=== PATIENT | male | born 1945 | race Caucasian/White ===

== ENCOUNTER 2018-02-28 16:04 | Inpatient (IN) | payer OTHER, MEDICARE ==
[~2018-02-28] VITALS: Ht 157.5 cm; Wt 49.4 kg
[~2018-02-28 16:04] MED LIST: AMIO200T PO; AMLO2.5T OR; CARV6.252 PO; CITA20TA4 PO; COUM2.5T PO; FURO1TAB93 PO; HYDR-2970 PO; LISI10 PO; NITR.3 SL; POTA-267 PO; PRAV20 PO; STOO100T PO; TEMA15 PO; XANA0.5T PO
[2018-02-28 16:25] VITALS: BP 141/100; PULSE 69; RESP 18; TEMP 98.2; O2SAT 98
[2018-02-28 17:01] LABS: BILIRUBIN, URINE NEG (NEG); BLOOD, URINE NEG (NEG); GLUCOSE,URINE NEG (NEG); KETONE, URINE NEG (NEG); NITRITE,URINE NEG (NEG); PH, URINE 6.5 (5.0-8.5); URINE COLOR LIGHT-YELLOW (YELLW/STRAW); URINE LEUKOCYTE ESTERASE NEG (NEG)
[2018-02-28 17:14] LABS: AUTOMATED NEUTROPHIL # 7.5 TH/MM3 (1.8-7.7); BASOPHIL # 0.1 TH/MM3 (0-0.2); BASOPHIL % 1.1 % (0.0-2.0); EOSINOPHIL # 0.2 TH/MM3 (0-0.4); EOSINOPHIL % 1.4 % (0.0-4.0); HEMATOCRIT 33.8 % (39.0-51.0); LYMPH % 21.5 % (9.0-44.0); LYMPHOCYTE # 2.5 TH/MM3 (1.0-4.8); MEAN CELL VOLUME 82.4 FL (80.0-100.0); MEAN CORPUSCULAR HEMOGLOBIN 26.9 PG (27.0-34.0); MEAN CORPUSCULAR HGB CONC 32.6 % (32.0-36.0); MEAN PLATELET VOLUME 6.9 FL (7.0-11.0); MONO % 10.8 % (0.0-8.0); MONOCYTE # 1.2 TH/MM3 (0-0.9); NEUT % 65.2 % (16.0-70.0); PLATELET COUNT 515 TH/MM3 (150-450); RED CELL DISTRIBUTION WIDTH 16.7 % (11.6-17.2); WHITE BLOOD COUNT 11.5 TH/MM3 (4.0-11.0)
[2018-02-28 17:38] LABS: ALT (GPT) 22 U/L (12-78); AST (GOT) 15 U/L (15-37); BICARBONATE 27.1 MEQ/L (21.0-32.0); BLOOD UREA NITROGEN 13 MG/DL (7-18); CALCIUM 8.6 MG/DL (8.5-10.1); CHLORIDE 103 MEQ/L (98-107); CREATININE 1.08 MG/DL (0.60-1.30); GLOMERULAR FILTRATION RATE 67 ML/MIN (>89); GLUCOSE,RANDOM 94 MG/DL (74-106); SODIUM (NA) 136 MEQ/L (136-145)
[2018-02-28 17:40] LABS: ACETAMINOPHEN LESS THAN 2.0 MCG/ML (10.0-30.0); ALKALINE PHOSPHATASE 72 U/L (45-117); TOTAL BILIRUBIN ADULT 0.3 MG/DL (0.2-1.0)
--- NOTE | 2018-02-28 18:20 | PD ---
HPI Chief Complaint: Psychiatric Symptoms Time Seen by Provider: 17:14 Travel History International Travel<30 days: No Contact w/Intl Traveler<30days: No Traveled to known affect area: No History of Present Illness HPI 72-year-old male presents to the emergency department from [facility] because he is out of their scope of practice. According to the Haney act report the patient has history of paranoia, bizarre behavior and auditory hallucinations. He has disheveled appearance, is talking to himself, and has disorganized thought patterns. On my examination the patient says he does not even know why he is here. He is alert and oriented 4. He says "it is the only place available so he can go home." He denies suicidal or homicidal ideations. Denies auditory or visual hallucinations. Reports smoking marijuana. Reports drinking alcohol once weekly. Symptoms are moderate to severe in severity. No known aggravating or relieving factors. Onset unknown. Duration unknown. Allergies to Benadryl. Reports history of CVA and [place] and takes Coumadin. Dr. Troncoso is his primary care provider. He has no current emergent C medical complaints. Denies chest pain, shortness of breath, abdominal pain, vomiting, change in urine or stool. PFSH Past Medical History Hx Anticoagulant Therapy: Yes (Aspirin 81mg) Anxiety: Yes Depression: Yes Cardiac Catheterization: Yes (2005) High Cholesterol: Yes Chest Pain: Yes Cerebrovascular Accident: Yes (2012) Coronary Artery Disease: Yes Hypertension: Yes Respiratory: Yes (COPD, Asthma) Myocardial Infarction: Yes Past Surgical History Coronary Artery Bypass Graft: Yes Pacemaker: Yes (2006 aicd) Other Surgery: Yes (colonectomy 2008) Social History Alcohol Use: Yes Tobacco Use: Yes (11/20 jppd) Substance Use: No Allergies-Medications (Allergen,Severity, Reaction): Coded Allergies: diphenhydramine (Unverified Allergy, Severe, Hives, 07/04/17) Reported Meds & Prescriptions Reported Meds & Active Scripts Active Reported Stool Softener-Docusate (Docusate Sodium) 100 Mg Cap 100 Mg PO DIRECTED Nitrostat (Nitroglycerin) 0.3 Mg Sub 0.3 Mg SL DAILYPRN Pravachol 20 Mg Tab (Pravastatin Sodium) 20 Mg Tab 40 Mg PO DAILY Coumadin (Warfarin Sodium) 2.5 Mg Tab 2.5 Mg PO DAILY Restoril 15 Mg Cap (Temazepam) 15 Mg Cap 30 Mg PO HS Prinivil 10 Mg Tab (Lisinopril) 10 Mg Tab 10 Mg PO DAILY Klor-Con 10 (Potassium Chloride) 10 Meq Tab 10 Meq PO DAILY Lorcet 10/650 Tab (Acetaminophen/Hydrocodone) 1 Tab Tab 1 Tab PO QIDPRN Lasix (Furosemide) 40 Mg Tab 40 Mg PO DAILY Citalopram Hydrobromide 20 Mg Tab 20 Mg PO DAILY Carvedilol 6.25 Mg Tab 6.25 Mg PO DAILY Amlodipine Besylate 2.5 Mg Tab 5 Mg OR DAILY Amiodarone Hcl (Amiodarone HCl) 200 Mg Tab 200 Mg PO DAILY Xanax 0.5 Mg Tab (Alprazolam) 0.5 Mg Tab 1 Mg PO TID Review of Systems Except as stated in HPI: all other systems reviewed are Neg Physical Exam Narrative GENERAL: Well-nourished, well-developed male patient, in no acute distress SKIN: Warm and dry. HEAD: Atraumatic. Normocephalic. EYES: Pupils equal and round. ENT: Mucosa pink and moist. NECK: Supple. Trachea midline. CARDIOVASCULAR: Regular rate and rhythm. No murmur appreciated. RESPIRATORY: No accessory muscle use. Clear to auscultation. Breath sounds equal bilaterally. GASTROINTESTINAL: Abdomen soft, non-tender, nondistended. Hepatic and splenic margins not palpable. Bowel sounds are active 4 quadrants. MUSCULOSKELETAL: No obvious deformities. No clubbing. No cyanosis. No edema. NEUROLOGICAL: Awake and alert. Oriented 3. No obvious cranial nerve deficits. Motor grossly within normal limits. Normal speech. Moves all extremities. 5/5 strength to all extremities. PSYCHIATRIC: No delusional thought processes. No hallucinations. Data Data Last Documented VS Vital Signs Date Time Temp Pulse Resp B/P (MAP) Pulse Ox O2 Delivery O2 Flow Rate FiO2 02/28/18 16:25 98.2 69 18 141/100 (114) 98 Orders Orders Complete Blood Count With Diff (02/28/18 16:34) Comprehensive Metabolic Panel (02/28/18 16:34) Urinalysis - C+S If Indicated (02/28/18 16:34) Psych Screen (02/28/18 16:34) Drug Screen, Random Urine (02/28/18 16:34) Alcohol (Ethanol) (02/28/18 16:34) Salicylates (Aspirin) (02/28/18 16:34) Tylenol (Acetaminophen) (02/28/18 16:34) Prothrombin Time / Inr (Pt) (02/28/18 18:07) Ct Brain W/O Iv Contrast(Rout) (02/28/18 ) Labs Laboratory Tests Test 02/28/18 16:45 02/28/18 16:50 Urine Color LIGHT-YELLOW Urine Turbidity CLEAR Urine pH 6.5 Urine Specific [place] 1.003 Urine Protein NEG mg/dL Urine Glucose (UA) NEG mg/dL Urine Ketones NEG mg/dL Urine Occult Blood NEG Urine Nitrite NEG Urine Bilirubin NEG Urine Urobilinogen LESS THAN 2.0 MG/DL Urine Leukocyte Esterase NEG Urine WBC LESS THAN 1 /hpf Microscopic Urinalysis Comment CULT NOT INDICATED Urine Opiates Screen NEG Urine Barbiturates Screen NEG Urine Amphetamines Screen NEG Urine Benzodiazepines Screen NEG Urine Cocaine Screen NEG Urine Cannabinoids Screen POS White Blood Count 11.5 TH/MM3 Red Blood Count 4.10 MIL/MM3 Hemoglobin 11.0 GM/DL Hematocrit 33.8 % Mean Corpuscular Volume 82.4 FL Mean Corpuscular Hemoglobin 26.9 PG Mean Corpuscular Hemoglobin Concent 32.6 % Red Cell Distribution Width 16.7 % Platelet Count 515 TH/MM3 Mean Platelet Volume 6.9 FL Neutrophils (%) (Auto) 65.2 % Lymphocytes (%) (Auto) 21.5 % Monocytes (%) (Auto) 10.8 % Eosinophils (%) (Auto) 1.4 % Basophils (%) (Auto) 1.1 % Neutrophils # (Auto) 7.5 TH/MM3 Lymphocytes # (Auto) 2.5 TH/MM3 Monocytes # (Auto) 1.2 TH/MM3 Eosinophils # (Auto) 0.2 TH/MM3 Basophils # (Auto) 0.1 TH/MM3 CBC Comment DIFF FINAL Differential Comment Blood Urea Nitrogen 13 MG/DL Creatinine 1.08 MG/DL Random Glucose 94 MG/DL Total Protein 7.0 GM/DL Albumin 3.0 GM/DL Calcium Level 8.6 MG/DL Alkaline Phosphatase 72 U/L Aspartate Amino Transf (AST/SGOT) 15 U/L Alanine Aminotransferase (ALT/SGPT) 22 U/L Total Bilirubin 0.3 MG/DL Sodium Level 136 MEQ/L Potassium Level 3.6 MEQ/L Chloride Level 103 MEQ/L Carbon Dioxide Level 27.1 MEQ/L Anion Gap 6 MEQ/L Estimat Glomerular Filtration Rate 67 ML/MIN Salicylates Level 2.4 MG/DL Acetaminophen Level LESS THAN 2.0 MCG/ML Ethyl Alcohol Level LESS THAN 3 MG/DL MDM Medical Decision Making Medical Screen Exam Complete: Yes Emergency Medical Condition: Yes Medical Record Reviewed: Yes Differential Diagnosis Altered mental status, dementia, Alzheimer's, psychosis, medical clearance for psychiatric admission Narrative Course Patient presents under a Haney act. Physical examination and vital signs are essentially unremarkable. Patient has no medical complaints to report. Psych screen has been ordered. If the laboratory results are unremarkable, the patient will be medically cleared for psychiatric evaluation and disposition. Diagnosis Primary Impression: Medical clearance for psychiatric admission Condition: Stable Massiel Polanco Feb 28, 2018 18:20
[2018-02-28 18:32] VITALS: BP 153/67; PULSE 68; RESP 18; O2SAT 97
[2018-02-28 18:36] LABS: INTERNATIONAL NORMALIZED RATIO 2.8 RATIO; PROTHROMBIN TIME - PATIENT 28.2 SEC (9.8-11.6)
[2018-02-28] MEDS ORDERED: AMLO5TAB2 PO (19:06)
[2018-02-28] MEDS ORDERED: AMIO200T PO (19:06)
[2018-02-28] MEDS ORDERED: FURO40TA PO (19:06)
[2018-02-28] MEDS ORDERED: HYDR-3366 PO (19:06)
[2018-02-28] MEDS ORDERED: FLUT1INH7 INH (19:06)
[2018-02-28] MEDS ORDERED: POTA10CA PO (19:06)
[2018-02-28] MEDS ORDERED: CITA20TA4 PO (19:06)
[2018-02-28] MEDS ORDERED: LISI10TA3 PO (19:06)
[2018-02-28] MEDS ORDERED: PRAV80TA2 PO (19:06)
[2018-02-28] MEDS ORDERED: WARF-60 PO (19:06)
[2018-02-28] MEDS ORDERED: GABA600T PO (19:06)
[2018-02-28] MEDS ORDERED: AUGM875T3 PO (19:06)
[2018-02-28] MEDS ORDERED: CARV6.252 PO (19:06)
--- NOTE | 2018-02-28 19:38 | RADRPT ---
EXAM DATE/TIME: 02/28/2018 19:23 [place] COMPARISON: No previous studies available for comparison. INDICATIONS : Altered mental status. RADIATION DOSE: 56.35 CTDIvol (mGy) MEDICAL HISTORY : Cerebrovascular disease. Cardiovascular disease Hypertension. SURGICAL HISTORY : None. ENCOUNTER: Initial ACUITY: 1 day PAIN SCALE: 0/10 LOCATION: cranial TECHNIQUE: Multiple contiguous axial images were obtained of the head. Using automated exposure control and adj ustment of the mA and/or kV according to patient size, radiation dose was kept as low as reasonably a chievable to obtain optimal diagnostic quality images. DICOM format image data is available electro nically for review and comparison. FINDINGS: CEREBRUM: The ventricles are normal for age with diffuse atrophic change. Chronic small vessel ischemic changes are present. Overall No evidence of midline shift, mass lesion, hemorrhage or acute infarction. No extra-axial fluid collections are seen. POSTERIOR FOSSA: The cerebellum and brainstem are intact. The 4th ventricle is midline. The cerebellopontine angle i s unremarkable. EXTRACRANIAL: The visualized portion of the orbits is intact. SKULL: The calvaria is intact. No evidence of skull fracture. CONCLUSION: 1. Atrophy and chronic small vessel ischemic change. 2. No acute hemorrhage or mass effect. Adan Ward MD on February 28, 2018 at 19:34 Board Certified Radiologist. This report was verified electronically.
--- NOTE | 2018-02-28 19:43 | PD ---
Data Data Last Documented VS Vital Signs Date Time Temp Pulse Resp B/P (MAP) Pulse Ox O2 Delivery O2 Flow Rate FiO2 02/28/18 18:32 68 18 153/67 (95) 97 Room Air 02/28/18 16:25 98.2 Orders Orders Complete Blood Count With Diff (02/28/18 16:34) Comprehensive Metabolic Panel (02/28/18 16:34) Urinalysis - C+S If Indicated (02/28/18 16:34) Psych Screen (02/28/18 16:34) Drug Screen, Random Urine (02/28/18 16:34) Alcohol (Ethanol) (02/28/18 16:34) Salicylates (Aspirin) (02/28/18 16:34) Tylenol (Acetaminophen) (02/28/18 16:34) Prothrombin Time / Inr (Pt) (02/28/18 18:07) Ct Brain W/O Iv Contrast(Rout) (02/28/18 ) Labs Laboratory Tests Test 02/28/18 16:45 02/28/18 16:50 Urine Color LIGHT-YELLOW Urine Turbidity CLEAR Urine pH 6.5 Urine Specific [place] 1.003 Urine Protein NEG mg/dL Urine Glucose (UA) NEG mg/dL Urine Ketones NEG mg/dL Urine Occult Blood NEG Urine Nitrite NEG Urine Bilirubin NEG Urine Urobilinogen LESS THAN 2.0 MG/DL Urine Leukocyte Esterase NEG Urine WBC LESS THAN 1 /hpf Microscopic Urinalysis Comment CULT NOT INDICATED Urine Opiates Screen NEG Urine Barbiturates Screen NEG Urine Amphetamines Screen NEG Urine Benzodiazepines Screen NEG Urine Cocaine Screen NEG Urine Cannabinoids Screen POS White Blood Count 11.5 TH/MM3 Red Blood Count 4.10 MIL/MM3 Hemoglobin 11.0 GM/DL Hematocrit 33.8 % Mean Corpuscular Volume 82.4 FL Mean Corpuscular Hemoglobin 26.9 PG Mean Corpuscular Hemoglobin Concent 32.6 % Red Cell Distribution Width 16.7 % Platelet Count 515 TH/MM3 Mean Platelet Volume 6.9 FL Neutrophils (%) (Auto) 65.2 % Lymphocytes (%) (Auto) 21.5 % Monocytes (%) (Auto) 10.8 % Eosinophils (%) (Auto) 1.4 % Basophils (%) (Auto) 1.1 % Neutrophils # (Auto) 7.5 TH/MM3 Lymphocytes # (Auto) 2.5 TH/MM3 Monocytes # (Auto) 1.2 TH/MM3 Eosinophils # (Auto) 0.2 TH/MM3 Basophils # (Auto) 0.1 TH/MM3 CBC Comment DIFF FINAL Differential Comment Prothrombin Time 28.2 SEC Prothromb Time International Ratio 2.8 RATIO Blood Urea Nitrogen 13 MG/DL Creatinine 1.08 MG/DL Random Glucose 94 MG/DL Total Protein 7.0 GM/DL Albumin 3.0 GM/DL Calcium Level 8.6 MG/DL Alkaline Phosphatase 72 U/L Aspartate Amino Transf (AST/SGOT) 15 U/L Alanine Aminotransferase (ALT/SGPT) 22 U/L Total Bilirubin 0.3 MG/DL Sodium Level 136 MEQ/L Potassium Level 3.6 MEQ/L Chloride Level 103 MEQ/L Carbon Dioxide Level 27.1 MEQ/L Anion Gap 6 MEQ/L Estimat Glomerular Filtration Rate 67 ML/MIN Salicylates Level 2.4 MG/DL Acetaminophen Level LESS THAN 2.0 MCG/ML Ethyl Alcohol Level LESS THAN 3 MG/DL MDM Supervised Visit with CEZAR: Yes Narrative Course I, Dr. Florian, have reviewed the advance practice practitioner's documentation and am in agreement, met with the patient face to face, made the diagnosis, and the medical decision making was done by me. *My assessment and Findings: The patient was at [facility] under Haney act for paranoid behavior with hallucination. He was sent here for medical evaluation. Details are a bit sketchy but it seems they are uncomfortable with him over there. He denies medical complaint at this time. He is therapeutic on Coumadin at 2.8. Brain CT was done to rule out hemorrhage which it has. His lab studies are normal. Urine is clean. Minor hypertension but otherwise stable vitals. He'll be seen by psychiatry and they will provide disposition. He is is medically stable as can be made at this time. Diagnosis Primary Impression: Medical clearance for psychiatric admission Condition: Stable Howard Florian MD Feb 28, 2018 19:42
--- NOTE | 2018-02-28 19:49 | PD ---
Physical Exam Date Seen by Provider: Feb 28, 2018 Time Seen by Provider: 19:47 Narrative GENERAL: This is a well-nourished, well-developed patient, in no apparent distress. SKIN: No rashes, ecchymoses or lesions. Warm and dry. HEAD: Atraumatic. Normocephalic. EYES: PERRL, EOMI, no discharge or injection. No scleral icterus. EARS: Clear NOSE: Nasal turbinates appear normal. THROAT: Mucosa pink and moist. Airway patent. NECK: Trachea midline. supple, moves head freely. LUNGS: Clear to auscultation. CV: Regular in rhythm. ABDOMEN: Soft nontender. EXT: No clubbing cyanosis or edema. Data Data Last Documented VS Vital Signs Date Time Temp Pulse Resp B/P (MAP) Pulse Ox O2 Delivery O2 Flow Rate FiO2 02/28/18 18:32 68 18 153/67 (95) 97 Room Air 02/28/18 16:25 98.2 Orders Orders Complete Blood Count With Diff (02/28/18 16:34) Comprehensive Metabolic Panel (02/28/18 16:34) Urinalysis - C+S If Indicated (02/28/18 16:34) Psych Screen (02/28/18 16:34) Drug Screen, Random Urine (02/28/18 16:34) Alcohol (Ethanol) (02/28/18 16:34) Salicylates (Aspirin) (02/28/18 16:34) Tylenol (Acetaminophen) (02/28/18 16:34) Prothrombin Time / Inr (Pt) (02/28/18 18:07) Ct Brain W/O Iv Contrast(Rout) (02/28/18 ) Labs Laboratory Tests Test 02/28/18 16:45 02/28/18 16:50 Urine Color LIGHT-YELLOW Urine Turbidity CLEAR Urine pH 6.5 Urine Specific [place] 1.003 Urine Protein NEG mg/dL Urine Glucose (UA) NEG mg/dL Urine Ketones NEG mg/dL Urine Occult Blood NEG Urine Nitrite NEG Urine Bilirubin NEG Urine Urobilinogen LESS THAN 2.0 MG/DL Urine Leukocyte Esterase NEG Urine WBC LESS THAN 1 /hpf Microscopic Urinalysis Comment CULT NOT INDICATED Urine Opiates Screen NEG Urine Barbiturates Screen NEG Urine Amphetamines Screen NEG Urine Benzodiazepines Screen NEG Urine Cocaine Screen NEG Urine Cannabinoids Screen POS White Blood Count 11.5 TH/MM3 Red Blood Count 4.10 MIL/MM3 Hemoglobin 11.0 GM/DL Hematocrit 33.8 % Mean Corpuscular Volume 82.4 FL Mean Corpuscular Hemoglobin 26.9 PG Mean Corpuscular Hemoglobin Concent 32.6 % Red Cell Distribution Width 16.7 % Platelet Count 515 TH/MM3 Mean Platelet Volume 6.9 FL Neutrophils (%) (Auto) 65.2 % Lymphocytes (%) (Auto) 21.5 % Monocytes (%) (Auto) 10.8 % Eosinophils (%) (Auto) 1.4 % Basophils (%) (Auto) 1.1 % Neutrophils # (Auto) 7.5 TH/MM3 Lymphocytes # (Auto) 2.5 TH/MM3 Monocytes # (Auto) 1.2 TH/MM3 Eosinophils # (Auto) 0.2 TH/MM3 Basophils # (Auto) 0.1 TH/MM3 CBC Comment DIFF FINAL Differential Comment Prothrombin Time 28.2 SEC Prothromb Time International Ratio 2.8 RATIO Blood Urea Nitrogen 13 MG/DL Creatinine 1.08 MG/DL Random Glucose 94 MG/DL Total Protein 7.0 GM/DL Albumin 3.0 GM/DL Calcium Level 8.6 MG/DL Alkaline Phosphatase 72 U/L Aspartate Amino Transf (AST/SGOT) 15 U/L Alanine Aminotransferase (ALT/SGPT) 22 U/L Total Bilirubin 0.3 MG/DL Sodium Level 136 MEQ/L Potassium Level 3.6 MEQ/L Chloride Level 103 MEQ/L Carbon Dioxide Level 27.1 MEQ/L Anion Gap 6 MEQ/L Estimat Glomerular Filtration Rate 67 ML/MIN Salicylates Level 2.4 MG/DL Acetaminophen Level LESS THAN 2.0 MCG/ML Ethyl Alcohol Level LESS THAN 3 MG/DL [facility] Medical Record Reviewed: Yes Supervised Visit with CEZAR: Yes Interpretation(s) CBC & BMP Diagram 02/28/18 16:50 Total Protein 7.0, Albumin 3.0 L, Calcium Level 8.6, Alkaline Phosphatase 72, Aspartate Amino Transf (AST/SGOT) 15, Alanine Aminotransferase (ALT/SGPT) 22, Total Bilirubin 0.3 Last [address] 02/28/18 0000 Signed Impressions: Service Date/Time: February 19:23 - CONCLUSION: 1. Atrophy and chronic small vessel ischemic change. 2. No acute hemorrhage or mass effect. Adan Ward MD Differential Diagnosis MDM: High Differential diagnoses: Schizophrenia, schizoaffective disorder, bipolar, anxiety, depression, adjustment reaction, mood disorder NOS, ODD, depressive disorder NOS, dementia, dementia with agitation, psychosis NOS, substance induced mood disorder, DMDD, Asperger syndrome, infection,electrolyte abnormality, malingering. Narrative Course Mental health screening discussed with the patient. Psychiatric screen ordered. The patient laboratory tests and CAT scan have been reviewed. The patient is considered medically stable. He can be evaluated psychiatrically. This is medical clearance for psychiatric evaluation Diagnosis Primary Impression: Medical clearance for psychiatric admission Condition: Stable Aubrey Townsend Feb 28, 2018 19:49
[2018-03-01 05:58] VITALS: BP 167/79; PULSE 96; RESP 20; O2SAT 98
[2018-03-01] MEDS ORDERED: LORazepam 1 MG TAB PO PRN (08:30)
[2018-03-01] MEDS ORDERED: MAGNESIUM HYDROXIDE SUSP 30 ML CUP PO PRN (08:30)
[2018-03-01] MEDS ORDERED: ALUMINUM/MAGNESIUM/SIMETH 30 ML CUP PO PRN (08:30)
[2018-03-01] MEDS ORDERED: LORazepam 2 MG/ML VIAL IM PRN ×2 (08:30)
[2018-03-01] MEDS ORDERED: CITALOPRAM HYDROBROMIDE 20 MG TAB PO ONE (08:30)
[2018-03-01] MEDS: NICOTINE 21 MG/24 HR PATCH T-DERMAL SCH (09:00)
[2018-03-01] MEDS: QUEtiapine FUMARATE 25 MG TAB PO SCH ×2 (09:00→11:24)
[2018-03-01] MEDS: FLUTICASONE 200 MCG/VILANTEROL 25 MCG INHALER INH SCH (09:00)
[2018-03-01] MEDS: POTASSIUM CHLORIDE 10 MEQ CAP PO SCH (09:00)
[2018-03-01] MEDS ORDERED: ACETAMINOPHEN 325 MG TAB PO PRN (09:00)
--- NOTE | 2018-03-01 10:09 | HHI.HP ---
Provisional Diagnosis Admission Date Mar 01, 2018 at 08:32 [place] I. Unspecified psychosis, major neurocognitive disorder, cannabis use disorder [place] II. Deferred [place] III. Hypertension [place] IV. Conflicts with significant other, abusing cannabis, abusing sleep medication [place] V. 35 Certification of Person's Competence To Provide Express and Informed Consent I have personally examined Cordell Goldberg , a person being served at [facility] on, Mar 01, 2018 09:57. Express and informed consent means consent voluntarily given in writing, by a competent person, after sufficient explanation and disclosure of the subject matter involved to enable the person to make a knowing and willful decision without any element of force, fraud, deceit, duress, or other form of constraint or coercion. This person is 18 years of age or older, is not now known to be incompetent to consent to treatment with a guardian advocate, and does not have a health care surrogate or proxy currently making medical treatment decisions. I have found this person to be one of the following: [] Competent to provide express and informed consent, as defined above, for voluntary admission to this facility and is competent to provide express and informed consent for treatment. He/she has the consistent capacity to make well reasoned, willful, and knowing decisions concerning his or her medical or mental health treatment. The person fully and consistently understands the purpose of the admission for examination/placement and is fully capable of personally exercising all rights assured [place] Incompetent to provide express and informed consent to voluntary admission, and this is incompetent to provide express and informed consent to treatment. The person must be transferred to involuntary status and a petition for a guardian advocate filed with the Circuit Court. [x] Refusing to provide express and informed consent to voluntary admission but is competent to provide express and informed consent for treatment. The person must be discharged or transferred to involuntary status. Form shall be completed within 24 hours of a person's arrival at the receiving facility and filed in the clinical record of each person: 1. Admitted on a voluntary basis 2. Permitted to provide express and informed consent to his/her own treatment 3. Allowed to transfer from involuntary to voluntary status 4. Prior to permitting a person to consent to his or her own treatment after having been previously found incompetent to consent to treatment. History of Present Illness Capacity: Has Capacity HPI The patient is a 72-year-old man, domiciled with his in [facility], retired, without no previous psychiatric history, no previous suicide attempts, no previous psychiatric hospitalizations, he has a medical history of hypertension, who presents to the emergency department from [facility] because he is out of their scope of practice. According to the [place] act report the patient has history of paranoia, bizarre behavior and auditory hallucinations. He has disheveled appearance, is talking to himself, and has disorganized thought patterns. EMR was reviewed. On psychiatric evaluation the patient is calm, cooperative, he seems to be quite confused, he says that he feels fine, he does not even know why he is here. He says "it is the only place available so he can go home." Patient reports that the reason he was sent here "is because my has been plotting against me, she most probably has been trying to harm me for a long time now". Patient keeps asking for police telephone number "so they can arrest my for sending me here". The patient seems to be quite focused in his behavior. He says that he feels that she is a schizophrenic and demented, she has been talking to herself, planning evil things against him. He reports that he has been very depressed due to this situation with his . He says that he is anxious at home, he cannot sleep at night, he is hypervigilant afraid that she is going to kill him. The patient is fully oriented 3, logical, coherent and relevant, but seems to be internally preoccupied and paranoid. The patient also has a significant improvement in recent recall, he was able to name 3 words, but was unable to reminded 5 minutes later. However, he has good abstraction, conserved language. He denies suicidal and homicidal ideation, he denies visual and auditory hallucinations. The patient also reports that he has been having difficulty sleeping at night, and he has been taking Soma from his best friend. He also reports using marijuana every day, denies the use of other illegal drugs alcohol Review of Systems Constitutional: DENIES: Diaphoretic episodes, Fatigue, Fever, Weight gain, Weight loss, Chills, Dizziness, Change in appetite, Night Sweats Endocrine: DENIES: Heat/cold intolerance, Polydipsia, Polyuria, Polyphagia Eyes: DENIES: Blurred vision, Diplopia, Eye inflammation, Eye pain, Vision loss , Photosensitivity, Double Vision Ears, nose, mouth, throat: DENIES: Tinnitus, Hearing loss, Vertigo, Nasal discharge, Oral lesions, Throat pain, Hoarseness, Ear Pain, Running Nose, Epistaxis, Sinus Pain, Toothache, Odynophagia Respiratory: DENIES: Apneas, Cough, Snoring, Wheezing, Hemoptysis, Sputum production, Shortness of breath Cardiovascular: DENIES: Chest pain, Palpitations, Syncope, Dyspnea on Exertion , PND, Lower Extremity Edema, Orthopnea, Claudication Gastrointestinal: DENIES: Abdominal pain, Black stools, Bloody stools, Constipation, Diarrhea, Nausea, Vomiting, Difficulty Swallowing, Anorexia Genitourinary: DENIES: Sexual dysfunction, Urinary frequency, Urinary incontinence, Urgency, Hematuria, Dysuria, Nocturia, Penile Discharge, Testicular Pain, Testicular Swelling Musculoskeletal: DENIES: Joint pain, Muscle aches, Stiffness, Joint Swelling, Back pain, Neck pain Integumentary: DENIES: Abnormal pigmentation, Nail changes, Pruritus, Rash Hematologic/lymphatic: DENIES: Bruising, Lymphadenopathy Immunologic/allergic: DENIES: Eczema, Urticaria Neurologic: DENIES: Abnormal gait, Headache, Localized weakness, Paresthesias, Seizures, Speech Problems, Tremor, Poor Balance Psychiatric: COMPLAINS OF: Anxiety, Confusion, Mood changes, Depression, DENIES : Hallucinations, Agitation, Suicidal Ideation, Homicidal Ideation, Delusions Past Psych History Violence risk - others (6 mos) Increased Violence risk - self (6 mos) Increased Substance Abuse History Drugs/Alcohol past 12 months Patient reports daily use of marijuana Past Family Social History Coded Allergies: diphenhydramine (Unverified Allergy, Severe, Hives, 02/28/18) Reported Medications Hydrocodone-Acetaminophen ([place]) 10-325 Mg Tab, 1 TAB PO Q6H Y for PAIN, TAB 0 Refills 02/28/18 Amoxicillin-Clavulanate (Augmentin) 875-125 Mg Tab, 1 TAB PO BID for Infection, TAB 0 Refills 02/28/18 Warfarin (Warfarin) 6 Mg Tab, 6 MG PO DAILY for Blood Clot Prevention, #30 TAB 0 Refills 02/28/18 Carvedilol (Carvedilol) 6.25 Mg Tab, 6.25 MG PO BID, #60 TAB 0 Refills 02/28/18 Furosemide (Furosemide) 40 Mg Tab, 40 MG PO DAILY, #30 TAB 0 Refills 02/28/18 Lisinopril (Lisinopril) 10 Mg Tab, 10 MG PO DAILY, #30 TAB 0 Refills 02/28/18 Amiodarone (Amiodarone) 200 Mg Tab, 200 MG PO DAILY for Regulate Heart Beat, # 30 TAB 0 Refills 02/28/18 Gabapentin (Gabapentin) 600 Mg Tab, 600 MG PO BID, #60 TAB 0 Refills 02/28/18 Amlodipine (Amlodipine) 5 Mg Tab, 5 MG PO DAILY for Blood Pressure Management, # 30 TAB 0 Refills 02/28/18 Pravastatin (Pravastatin) 80 Mg Tab, 80 MG PO DAILY for Cholesterol Management, #30 TAB 0 Refills 02/28/18 Potassium Chloride ER (Potassium Chloride ER) 10 Meq Cap, 10 MEQ PO DAILY for Electrolyte Replacement, #30 CAP 0 Refills 02/28/18 Citalopram (Citalopram) 20 Mg Tab, 20 MG PO DAILY for Control Depression, #30 TAB 0 Refills 02/28/18 Fluticasone-Vilanterol Inh (Breo Ellipta Inh) 200-25 Mcg/Act Inh, 1 PUFF INH DAILY, #1 INHALER 0 Refills Use daily at the same time. 02/28/18 Current Medications Medications (Trade) Dose Ordered Sig/Cristina Route Start Time Stop Time Status Last Admin (Cordarone) 200 mg DAILY PO 03/01/18 09:00 (Norvasc) 5 mg DAILY PO 03/01/18 09:00 (Coreg) 6.25 mg BID PO 03/01/18 09:00 (CeleXA) 20 mg DAILY PO 03/01/18 09:00 (Breo Ellipta 200-25 Inh) 1 puff DAILY INH 03/01/18 09:00 (Lasix) 40 mg DAILY PO 03/01/18 09:00 (Neurontin) 600 mg BID PO 03/01/18 09:00 ([place]ugene 10-325 Mg) 1 tab Q6H PRN PO 03/01/18 09:00 (Prinivil) 10 mg DAILY PO 03/01/18 09:00 (KCl) 10 meq DAILY PO 03/01/18 09:00 (Pravachol) 80 mg DAILY PO 03/01/18 09:00 (Coumadin) 6 mg DAILY@1600 PO 03/01/18 16:00 Future Hold (SEROquel) 12.5 mg BID@09,12 PO 03/01/18 09:00 (SINEquan) 10 mg HS PO 03/01/18 21:00 (Ativan) 0.5 mg Q12H PRN PO 03/01/18 08:30 (Ativan Inj) 0.5 mg Q12H PRN IM 03/01/18 08:30 (Tylenol) 650 mg Q4H PRN PO 03/01/18 09:00 (Milk Of Magnesia Liq) 30 ml DAILY PRN PO 03/01/18 08:30 (Mag-Al Plus Susp Liq) 30 ml Q6H PRN PO 03/01/18 08:30 (Habitrol 21 Mg Patch.24 Hr) 1 patch DAILY T-DERMAL 03/01/18 09:00 Miscellaneous Information 1 HS T-DERMAL 03/01/18 21:00 Family Psych History No family psychiatric history Social History The patient was born and raised in [facility], he lives in [facility] with his , he has 6 kids, 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 2) Family support, no previous psychiatric Physical Exam No tremors, no EPS, no withdrawal symptoms, no psychomotor agitation or retardation Vital Signs Vital Signs Date Time Temp Pulse Resp B/P (MAP) Pulse Ox O2 Delivery O2 Flow Rate FiO2 03/01/18 05:58 96 20 167/79 (108) 98 Room Air 02/28/18 16:25 98.2 Lab Results Test 02/28/18 16:45 02/28/18 16:50 Urine Color LIGHT-YELLOW Urine Turbidity CLEAR Urine pH 6.5 Urine Specific [place] 1.003 Urine Protein NEG mg/dL Urine Glucose (UA) NEG mg/dL Urine Ketones NEG mg/dL Urine Occult Blood NEG Urine Nitrite NEG Urine Bilirubin NEG Urine Urobilinogen LESS THAN 2.0 MG/DL Urine Leukocyte Esterase NEG Urine WBC LESS THAN 1 /hpf Microscopic Urinalysis Comment CULT NOT INDICATED Urine Opiates Screen NEG Urine Barbiturates Screen NEG Urine Amphetamines Screen NEG Urine Benzodiazepines Screen NEG Urine Cocaine Screen NEG Urine Cannabinoids Screen POS White Blood Count 11.5 TH/MM3 Red Blood Count 4.10 MIL/MM3 Hemoglobin 11.0 GM/DL Hematocrit 33.8 % Mean Corpuscular Volume 82.4 FL Mean Corpuscular Hemoglobin 26.9 PG Mean Corpuscular Hemoglobin Concent 32.6 % Red Cell Distribution Width 16.7 % Platelet Count 515 TH/MM3 Mean Platelet Volume 6.9 FL Neutrophils (%) (Auto) 65.2 % Lymphocytes (%) (Auto) 21.5 % Monocytes (%) (Auto) 10.8 % Eosinophils (%) (Auto) 1.4 % Basophils (%) (Auto) 1.1 % Neutrophils # (Auto) 7.5 TH/MM3 Lymphocytes # (Auto) 2.5 TH/MM3 Monocytes # (Auto) 1.2 TH/MM3 Eosinophils # (Auto) 0.2 TH/MM3 Basophils # (Auto) 0.1 TH/MM3 CBC Comment DIFF FINAL Differential Comment Prothrombin Time 28.2 SEC Prothromb Time International Ratio 2.8 RATIO Blood Urea Nitrogen 13 MG/DL Creatinine 1.08 MG/DL Random Glucose 94 MG/DL Total Protein 7.0 GM/DL Albumin 3.0 GM/DL Calcium Level 8.6 MG/DL Alkaline Phosphatase 72 U/L Aspartate Amino Transf (AST/SGOT) 15 U/L Alanine Aminotransferase (ALT/SGPT) 22 U/L Total Bilirubin 0.3 MG/DL Sodium Level 136 MEQ/L Potassium Level 3.6 MEQ/L Chloride Level 103 MEQ/L Carbon Dioxide Level 27.1 MEQ/L Anion Gap 6 MEQ/L Estimat Glomerular Filtration Rate 67 ML/MIN Salicylates Level 2.4 MG/DL Acetaminophen Level LESS THAN 2.0 MCG/ML Ethyl Alcohol Level LESS THAN 3 MG/DL Mental Status Examination Appearance: Appropriate Consciousness: Alert Orientation: x4 Motor Activity: Normal gait Speech: Hesitant Language: Adequate Fund of Knowledge: Adequate Attention and Concentration: Adequate Memory: Impaired Mood: Sad Affect: Irritable Thought Process & Associations: Intact Thought Content: Appropriate Hallucination Type: None Delusion Type: Bizarre, Paranoid Suicidal Ideation: No Suicidal Plan: No Suicidal Intention: No Homicidal Ideation: No Homicidal Plan: No Homicidal Intention: No Insight: Poor Judgment: Poor Assessment & Plan Problem List: (1) Unspecified psychosis ICD Codes: F29 - Unspecified psychosis not due to a substance or known physiological condition Assessment & Plan: Patient was seen today for psychiatric evaluation. He presents increased paranoia toward his , self neglecting behavior, he is internally preoccupied, a little bit disorganized and with reported self talking. Patient also has marked improvement in memory, he is oriented 3, both with improving and recent recall, executive function and concentration. He also reports symptomatology of depression and anxiety in the context of being paranoid all the time against his . Patient has been engaging in poor judgment and reckless behavior such as use of medication for sleep of a friend and also smoking marijuana. Patient has an increased risk of danger to self and others due to the level of psychosis and early dementia. Patient will be admitted in psychiatry for stabilization and safety. I will start a low dose of Seroquel 12.5 mg twice daily for psychosis, Aricept 10 mg daily for dementia, citalopram 10 mg daily for depression. Also will start his medical medication for hypertension. Will consult psychiatry for second opinion, hospitalist to continue follow-up of medical conditions. Patient would be transferred to 2500 unit. Assessment & Plan Estimated LOS: Chuck Castelan MD Mar 01, 2018 10:09
[2018-03-01] MEDS: CARVEDILOL 6.25 MG TAB PO SCH ×2 (10:39→20:45)
[2018-03-01] MEDS: PRAVASTATIN SOD 80 MG TAB PO SCH (10:39)
[2018-03-01] MEDS: FUROSEMIDE 40 MG TAB PO SCH (10:40)
[2018-03-01] MEDS: CITALOPRAM HYDROBROMIDE 20 MG TAB PO SCH (10:40)
[2018-03-01] MEDS: GABAPENTIN 300 MG CAP PO SCH ×2 (10:40→20:45)
[2018-03-01] MEDS: LISINOPRIL 10 MG TAB PO SCH (10:41)
[2018-03-01] MEDS: AMIODARONE 200 MG TAB PO SCH (10:41)
[2018-03-01] MEDS: amLODIPine BESYLATE 5 MG TAB PO SCH (10:41)
[2018-03-01 11:26] VITALS: BP 155/70; PULSE 88; RESP 18; TEMP 98.5; O2SAT 100
--- NOTE | 2018-03-01 13:27 | PD.PSY.CON ---
Provisional Diagnosis Admission Date Mar 01, 2018 at 08:32 [place] I. Unspecified psychosis, major neurocognitive disorder, cannabis use disorder [place] II. Deferred [place] III. Hypertension [place] IV. Conflicts with significant other, abusing cannabis, abusing sleep medication [place] V. 35 History of Present Illness Service Psychiatry Consult Requested By Dr. Lu Reason for Consult Second opinion petition Primary Care Physician Unknown HPI The patient is a 72-year-old man, domiciled with his in [place], retired, without no previous psychiatric history, no previous suicide attempts, no previous psychiatric hospitalizations, he has a medical history of hypertension, who presents to the emergency department from [facility] because he is out of their scope of practice. According to the [place] act report the patient has history of paranoia, bizarre behavior and auditory hallucinations. He has disheveled appearance, is talking to himself, and has disorganized thought patterns. EMR was reviewed. On psychiatric evaluation the patient is calm, cooperative, he seems to be quite confused, he says that he feels fine, he does not even know why he is here. He says "it is the only place available so he can go home." Patient reports that the reason he was sent here "is because my has been plotting against me, she most probably has been trying to harm me for a long time now". Patient keeps asking for police telephone number "so they can arrest my for sending me here". The patient seems to be quite focused in his behavior. He says that he feels that she is a schizophrenic and demented, she has been talking to herself, planning evil things against him. He reports that he has been very depressed due to this situation with his . He says that he is anxious at home, he cannot sleep at night, he is hypervigilant afraid that she is going to kill him. The patient is fully oriented 3, logical, coherent and relevant, but seems to be internally preoccupied and paranoid. The patient also has a significant improvement in recent recall, he was able to name 3 words, but was unable to reminded 5 minutes later. However, he has good abstraction, conserved language. He denies suicidal and homicidal ideation, he denies visual and auditory hallucinations. The patient also reports that he has been having difficulty sleeping at night, and he has been taking Soma from his best friend. He also reports using marijuana every day, denies the use of other illegal drugs Above note dictated by Dr. Lu reviewed and agreed with. Dr. Lu has assigned first opinion petition supporting [facility].. Patient seen by me in the room is disorganized paranoid vigilant somewhat irritable with me. I agree with Dr. Lu patient does meet criteria for involuntary psychiatric hospitalization of the [place] act thus I will cosign second opinion petition supporting [facility]. Past Family Social History Coded Allergies: diphenhydramine (Unverified Allergy, Severe, Hives, 02/28/18) Reported Medications Hydrocodone-Acetaminophen ([place]) 10-325 Mg Tab, 1 TAB PO Q6H Y for PAIN, TAB 0 Refills 02/28/18 Amoxicillin-Clavulanate (Augmentin) 875-125 Mg Tab, 1 TAB PO BID for Infection, TAB 0 Refills 02/28/18 Warfarin (Warfarin) 6 Mg Tab, 6 MG PO DAILY for Blood Clot Prevention, #30 TAB 0 Refills 02/28/18 Carvedilol (Carvedilol) 6.25 Mg Tab, 6.25 MG PO BID, #60 TAB 0 Refills 02/28/18 Furosemide (Furosemide) 40 Mg Tab, 40 MG PO DAILY, #30 TAB 0 Refills 02/28/18 Lisinopril (Lisinopril) 10 Mg Tab, 10 MG PO DAILY, #30 TAB 0 Refills 02/28/18 Amiodarone (Amiodarone) 200 Mg Tab, 200 MG PO DAILY for Regulate Heart Beat, # 30 TAB 0 Refills 02/28/18 Gabapentin (Gabapentin) 600 Mg Tab, 600 MG PO BID, #60 TAB 0 Refills 02/28/18 Amlodipine (Amlodipine) 5 Mg Tab, 5 MG PO DAILY for Blood Pressure Management, # 30 TAB 0 Refills 02/28/18 Pravastatin (Pravastatin) 80 Mg Tab, 80 MG PO DAILY for Cholesterol Management, #30 TAB 0 Refills 02/28/18 Potassium Chloride ER (Potassium Chloride ER) 10 Meq Cap, 10 MEQ PO DAILY for Electrolyte Replacement, #30 CAP 0 Refills 02/28/18 Citalopram (Citalopram) 20 Mg Tab, 20 MG PO DAILY for Control Depression, #30 TAB 0 Refills 02/28/18 Fluticasone-Vilanterol Inh (Breo Ellipta Inh) 200-25 Mcg/Act Inh, 1 PUFF INH DAILY, #1 INHALER 0 Refills Use daily at the same time. 02/28/18 Current Medications Medications (Trade) Dose Ordered Sig/Cristina Route Start Time Stop Time Status Last Admin (Cordarone) 200 mg DAILY PO 03/01/18 09:00 03/01/18 10:41 (Norvasc) 5 mg DAILY PO 03/01/18 09:00 03/01/18 10:41 (Coreg) 6.25 mg BID PO 03/01/18 09:00 03/01/18 10:39 (CeleXA) 20 mg DAILY PO 03/01/18 09:00 03/01/18 10:40 (Breo Ellipta 200-25 Inh) 1 puff DAILY INH 03/01/18 09:00 03/01/18 09:00 (Lasix) 40 mg DAILY PO 03/01/18 09:00 03/01/18 10:40 (Neurontin) 600 mg BID PO 03/01/18 09:00 03/01/18 10:40 ([place] 10-325 Mg) 1 tab Q6H PRN PO 03/01/18 09:00 (Prinivil) 10 mg DAILY PO 03/01/18 09:00 03/01/18 10:41 (KCl) 10 meq DAILY PO 03/01/18 09:00 03/01/18 09:00 (Pravachol) 80 mg DAILY PO 03/01/18 09:00 03/01/18 10:39 (Coumadin) 6 mg DAILY@1600 PO 03/01/18 16:00 Future Hold (SEROquel) 12.5 mg BID@09,12 PO 03/01/18 09:00 03/01/18 11:24 (Ativan) 0.5 mg Q12H PRN PO 03/01/18 08:30 (Ativan Inj) 0.5 mg Q12H PRN IM 03/01/18 08:30 (Tylenol) 650 mg Q4H PRN PO 03/01/18 09:00 (Milk Of Magnesia Liq) 30 ml DAILY PRN PO 03/01/18 08:30 (Mag-Al Plus Susp Liq) 30 ml Q6H PRN PO 03/01/18 08:30 (Habitrol 21 Mg Patch.24 Hr) 1 patch DAILY T-DERMAL 03/01/18 09:00 Miscellaneous Information 1 HS T-DERMAL 03/01/18 21:00 (Aricept) 10 mg HS PO 03/01/18 21:00 (Pneumovax-23 Inj) 25 mcg ONCE ONCE IM 03/02/18 10:00 03/02/18 10:01 Patient's Strengths (min. 2) Family support, no previous psychiatric Physical Exam Vital Signs Vital Signs Date Time Temp Pulse Resp B/P (MAP) Pulse Ox O2 Delivery O2 Flow Rate FiO2 03/01/18 11:26 98.5 88 18 155/70 (98) 100 03/01/18 05:58 Room Air I/O 03/01/18 03/01/18 03/02/18 08:00 16:00 00:00 Intake Total 240 ml Balance 240 ml Lab Results Test 02/28/18 16:45 02/28/18 16:50 Urine Color LIGHT-YELLOW Urine Turbidity CLEAR Urine pH 6.5 Urine Specific [place] 1.003 Urine Protein NEG mg/dL Urine Glucose (UA) NEG mg/dL Urine Ketones NEG mg/dL Urine Occult Blood NEG Urine Nitrite NEG Urine Bilirubin NEG Urine Urobilinogen LESS THAN 2.0 MG/DL Urine Leukocyte Esterase NEG Urine WBC LESS THAN 1 /hpf Microscopic Urinalysis Comment CULT NOT INDICATED Urine Opiates Screen NEG Urine Barbiturates Screen NEG Urine Amphetamines Screen NEG Urine Benzodiazepines Screen NEG Urine Cocaine Screen NEG Urine Cannabinoids Screen POS White Blood Count 11.5 TH/MM3 Red Blood Count 4.10 MIL/MM3 Hemoglobin 11.0 GM/DL Hematocrit 33.8 % Mean Corpuscular Volume 82.4 FL Mean Corpuscular Hemoglobin 26.9 PG Mean Corpuscular Hemoglobin Concent 32.6 % Red Cell Distribution Width 16.7 % Platelet Count 515 TH/MM3 Mean Platelet Volume 6.9 FL Neutrophils (%) (Auto) 65.2 % Lymphocytes (%) (Auto) 21.5 % Monocytes (%) (Auto) 10.8 % Eosinophils (%) (Auto) 1.4 % Basophils (%) (Auto) 1.1 % Neutrophils # (Auto) 7.5 TH/MM3 Lymphocytes # (Auto) 2.5 TH/MM3 Monocytes # (Auto) 1.2 TH/MM3 Eosinophils # (Auto) 0.2 TH/MM3 Basophils # (Auto) 0.1 TH/MM3 CBC Comment DIFF FINAL Differential Comment Prothrombin Time 28.2 SEC Prothromb Time International Ratio 2.8 RATIO Blood Urea Nitrogen 13 MG/DL Creatinine 1.08 MG/DL Random Glucose 94 MG/DL Total Protein 7.0 GM/DL Albumin 3.0 GM/DL Calcium Level 8.6 MG/DL Alkaline Phosphatase 72 U/L Aspartate Amino Transf (AST/SGOT) 15 U/L Alanine Aminotransferase (ALT/SGPT) 22 U/L Total Bilirubin 0.3 MG/DL Sodium Level 136 MEQ/L Potassium Level 3.6 MEQ/L Chloride Level 103 MEQ/L Carbon Dioxide Level 27.1 MEQ/L Anion Gap 6 MEQ/L Estimat Glomerular Filtration Rate 67 ML/MIN Salicylates Level 2.4 MG/DL Acetaminophen Level LESS THAN 2.0 MCG/ML Ethyl Alcohol Level LESS THAN 3 MG/DL Mental Status Examination Appearance: Appropriate Consciousness: Alert Orientation: x4 Motor Activity: Normal gait Speech: Hesitant Language: Adequate Fund of Knowledge: Adequate Attention and Concentration: Adequate Memory: Impaired Mood: Sad Affect: Irritable Thought Process & Associations: Intact Thought Content: Appropriate Hallucination Type: None Delusion Type: Bizarre, Paranoid Suicidal Ideation: No Suicidal Plan: No Suicidal Intention: No Homicidal Ideation: No Homicidal Plan: No Homicidal Intention: No Insight: Poor Judgment: Poor Assessment & Plan Problem List: (1) Unspecified psychosis ICD Codes: F29 - Unspecified psychosis not due to a substance or known physiological condition Assessment & Plan Estimated LOS: Anthony Kwon MD Mar 01, 2018 13:27
[2018-03-01] MEDS ORDERED: WARFARIN SOD 6 MG TAB PO SCH (16:00)
[2018-03-01 20:00] VITALS: BP 158/72; PULSE 78
[2018-03-01] MEDS: DONEPEZIL HCL 5 MG TAB PO SCH (20:45)
[2018-03-01] MEDS: REMOVE OLD NICODERM (NICOTINE) PATCH T-DERMAL SCH (20:45)
[2018-03-01] MEDS ORDERED: DOXEPIN HCL 10 MG CAP PO SCH (21:00)
[2018-03-02 05:44] VITALS: BP 144/75; PULSE 73; RESP 16; TEMP 97.9; O2SAT 96
[2018-03-02 07:24] LABS: BLOOD UREA NITROGEN 12 MG/DL (7-18); CALCIUM 8.9 MG/DL (8.5-10.1); CHLORIDE 110 MEQ/L (98-107); CREATININE 1.02 MG/DL (0.60-1.30); GLOMERULAR FILTRATION RATE 72 ML/MIN (>89); GLUCOSE,RANDOM 100 MG/DL (74-106); SODIUM (NA) 142 MEQ/L (136-145)
[2018-03-02 07:25] LABS: CHOLESTEROL 157 MG/DL (120-200); TRIGLYCERIDES 131 MG/DL (42-150)
[2018-03-02 07:27] LABS: CHOLESTEROL/ HDL RATIO 3.32 RATIO; HDL CHOLESTEROL 47.2 MG/DL (40.0-60.0); LDL CHOLESTEROL 84 MG/DL (0-99)
[2018-03-02] MEDS: FLUTICASONE 200 MCG/VILANTEROL 25 MCG INHALER INH SCH (09:00)
[2018-03-02] MEDS: NICOTINE 21 MG/24 HR PATCH T-DERMAL SCH (09:00)
[2018-03-02] MEDS: CITALOPRAM HYDROBROMIDE 20 MG TAB PO SCH (09:00)
[2018-03-02] MEDS: LISINOPRIL 10 MG TAB PO SCH (09:35)
[2018-03-02] MEDS: POTASSIUM CHLORIDE 10 MEQ CAP PO SCH (09:35)
[2018-03-02] MEDS: FUROSEMIDE 40 MG TAB PO SCH (09:35)
[2018-03-02] MEDS: PRAVASTATIN SOD 80 MG TAB PO SCH (09:35)
[2018-03-02] MEDS: CARVEDILOL 6.25 MG TAB PO SCH ×2 (09:36→20:41)
[2018-03-02] MEDS: amLODIPine BESYLATE 5 MG TAB PO SCH (09:36)
[2018-03-02] MEDS: QUEtiapine FUMARATE 25 MG TAB PO SCH ×2 (09:36→11:50)
[2018-03-02] MEDS: AMIODARONE 200 MG TAB PO SCH (09:36)
[2018-03-02] MEDS: ACETAMINOPHEN/HYDROcodone 325 MG/10 MG TAB PO PRN (09:44)
[2018-03-02] MEDS: GABAPENTIN 300 MG CAP PO SCH ×2 (09:44→20:41)
[2018-03-02] MEDS ORDERED: PNEUMOCOCCAL POLYVALENT INJ 25 MCG/0.5 ML SYR IM ONE (10:00)
[2018-03-02] MEDS: LORazepam 0.5 MG TAB PO PRN (15:32)
--- NOTE | 2018-03-02 15:34 | HHI.PYPN ---
Subjective Remarks Patient was seen and case discussed with nursing. Patient says he is been anxious throughout the day. Continues to have bizarre behavior. During the interview he invades my personal space and starts whispering to me about another patient saying that he needs to apply for his benefit so he can get more money. Her processes disorganized and tangential. Denies auditory or visual hallucinations. No outbursts Mental Status Examination Appearance: Appropriate Consciousness: Alert Orientation: x4 Motor Activity: Normal gait Speech: Hesitant Language: Adequate Fund of Knowledge: Adequate Attention and Concentration: Adequate Memory: Impaired Mood: Sad Affect: Irritable Thought Process & Associations: Circumstantial, Disorganized Thought Content: Appropriate Hallucination Type: None Delusion Type: Bizarre, Paranoid Suicidal Ideation: No Suicidal Plan: No Suicidal Intention: No Homicidal Ideation: No Homicidal Plan: No Homicidal Intention: No Insight: Poor Judgment: Poor Results Labs Test 03/02/18 06:33 Blood Urea Nitrogen 12 MG/DL Creatinine 1.02 MG/DL Random Glucose 100 MG/DL Calcium Level 8.9 MG/DL Sodium Level 142 MEQ/L Potassium Level 4.0 MEQ/L Chloride Level 110 MEQ/L Carbon Dioxide Level 24.0 MEQ/L Anion Gap 8 MEQ/L Estimat Glomerular Filtration Rate 72 ML/MIN Triglycerides Level 131 MG/DL Cholesterol Level 157 MG/DL LDL Cholesterol 84 MG/DL HDL Cholesterol 47.2 MG/DL Cholesterol/HDL Ratio 3.32 RATIO Vitals/IOs Vital Signs Date Time Temp Pulse Resp B/P (MAP) Pulse Ox O2 Delivery O2 Flow Rate FiO2 03/02/18 05:44 97.9 73 16 144/75 (98) 96 03/01/18 05:58 Room Air Intake and Output 03/02/18 03/02/18 03/03/18 08:00 16:00 00:00 Intake Total 240 ml 360 ml Balance 240 ml 360 ml Assessment & Plan Problem List: (1) Unspecified psychosis ICD Codes: F29 - Unspecified psychosis not due to a substance or known physiological condition Assessment & Plan Estimated LOS: days Continue current treatment plan Justification for Cont. Inpt. Patient would decompensate in a less restrictive setting Derrick Javier DO Mar 02, 2018 15:34
[2018-03-02 17:33] VITALS: BP 133/62; PULSE 70; RESP 17; TEMP 97.9; O2SAT 99
[2018-03-02] MEDS: DONEPEZIL HCL 5 MG TAB PO SCH (20:41)
[2018-03-02] MEDS: REMOVE OLD NICODERM (NICOTINE) PATCH T-DERMAL SCH (20:41)
[2018-03-03 05:46] VITALS: BP 142/65; PULSE 64; RESP 18; TEMP 98.5; O2SAT 98
[2018-03-03] MEDS: FLUTICASONE 200 MCG/VILANTEROL 25 MCG INHALER INH SCH (08:46)
[2018-03-03] MEDS: GABAPENTIN 300 MG CAP PO SCH ×2 (08:47→20:37)
[2018-03-03] MEDS: LISINOPRIL 10 MG TAB PO SCH (08:47)
[2018-03-03] MEDS: FUROSEMIDE 40 MG TAB PO SCH (08:48)
[2018-03-03] MEDS: PRAVASTATIN SOD 80 MG TAB PO SCH (08:48)
[2018-03-03] MEDS: POTASSIUM CHLORIDE 10 MEQ CAP PO SCH (08:48)
[2018-03-03] MEDS: ACETAMINOPHEN/HYDROcodone 325 MG/10 MG TAB PO PRN ×2 (08:48→21:29)
[2018-03-03] MEDS: AMIODARONE 200 MG TAB PO SCH (08:48)
[2018-03-03] MEDS: CITALOPRAM HYDROBROMIDE 20 MG TAB PO SCH (08:48)
[2018-03-03] MEDS: amLODIPine BESYLATE 5 MG TAB PO SCH (08:49)
[2018-03-03] MEDS: QUEtiapine FUMARATE 25 MG TAB PO SCH ×2 (08:49→11:57)
[2018-03-03] MEDS: CARVEDILOL 6.25 MG TAB PO SCH ×2 (08:49→20:37)
[2018-03-03] MEDS: NICOTINE 21 MG/24 HR PATCH T-DERMAL SCH (08:50)
[2018-03-03 13:45] LABS: HEMOGLOBIN A1C 5.8 % (4.3-6.0)
--- NOTE | 2018-03-03 14:44 | HHI.PYPN ---
Subjective Remarks Patient was seen and case discussed with nursing. Patient is less disorganized today. No bizarre behavior noted as yesterday by myself or nursing. Insight remains poor concerning his admission and his behavior. He is compliant with his medications and behaving well on the unit Mental Status Examination Appearance: Appropriate Consciousness: Alert Orientation: x4 Motor Activity: Normal gait Speech: Hesitant Language: Adequate Fund of Knowledge: Adequate Attention and Concentration: Adequate Memory: Impaired Mood: Sad Affect: Irritable Thought Process & Associations: Circumstantial, Disorganized Thought Content: Appropriate Hallucination Type: None Delusion Type: Bizarre, Paranoid Suicidal Ideation: No Suicidal Plan: No Suicidal Intention: No Homicidal Ideation: No Homicidal Plan: No Homicidal Intention: No Insight: Poor Judgment: Poor Results Vitals/IOs Vital Signs Date Time Temp Pulse Resp B/P (MAP) Pulse Ox O2 Delivery O2 Flow Rate FiO2 03/03/18 05:46 98.5 64 18 142/65 (90) 98 03/01/18 05:58 Room Air Intake and Output 03/03/18 03/03/18 03/04/18 08:00 16:00 00:00 Intake Total 0 ml 360 ml Balance 0 ml 360 ml Assessment & Plan Problem List: (1) Unspecified psychosis ICD Codes: F29 - Unspecified psychosis not due to a substance or known physiological condition Assessment & Plan Continue current treatment plan Justification for Cont. Inpt. Patient would decompensate in a less restrictive setting Derrick Javier DO Mar 03, 2018 14:44
[2018-03-03 17:20] VITALS: BP 148/65; PULSE 61; RESP 16; TEMP 97.8; O2SAT 100
[2018-03-03] MEDS: DONEPEZIL HCL 5 MG TAB PO SCH (20:37)
[2018-03-03] MEDS: REMOVE OLD NICODERM (NICOTINE) PATCH T-DERMAL SCH (20:37)
[2018-03-03 23:30] VITALS: BP 131/59; PULSE 60; RESP 18; TEMP 97.6; O2SAT 96
[2018-03-03] MEDS: LORazepam 0.5 MG TAB PO PRN (23:38)
[2018-03-04 06:16] VITALS: BP 142/67; PULSE 65; RESP 18; TEMP 96.7; O2SAT 96
[2018-03-04] MEDS: QUEtiapine FUMARATE 25 MG TAB PO SCH ×2 (08:54→11:29)
[2018-03-04] MEDS: POTASSIUM CHLORIDE 10 MEQ CAP PO SCH (08:54)
[2018-03-04] MEDS: LISINOPRIL 10 MG TAB PO SCH (08:54)
[2018-03-04] MEDS: CITALOPRAM HYDROBROMIDE 20 MG TAB PO SCH (08:54)
[2018-03-04] MEDS: amLODIPine BESYLATE 5 MG TAB PO SCH (08:54)
[2018-03-04] MEDS: CARVEDILOL 6.25 MG TAB PO SCH (08:54)
[2018-03-04] MEDS: PRAVASTATIN SOD 80 MG TAB PO SCH (08:54)
[2018-03-04] MEDS: AMIODARONE 200 MG TAB PO SCH (08:55)
[2018-03-04] MEDS: GABAPENTIN 300 MG CAP PO SCH (08:55)
[2018-03-04] MEDS: FLUTICASONE 200 MCG/VILANTEROL 25 MCG INHALER INH SCH (08:55)
[2018-03-04] MEDS: ACETAMINOPHEN/HYDROcodone 325 MG/10 MG TAB PO PRN (08:55)
[2018-03-04] MEDS: FUROSEMIDE 40 MG TAB PO SCH (08:59)
[2018-03-04] MEDS: NICOTINE 21 MG/24 HR PATCH T-DERMAL SCH (08:59)
--- NOTE | 2018-03-04 10:51 | PD.CONS ---
[facility] Request[facility] By Psychiatry service Reason for Consult Management patient on Coumadin therapy Primary Care Physician PCP-arrange CT "Dr. Troncoso" Diagnoses: History of Present Illness Patient is a 72-year-old male who is admitted under psychiatry services for unspecified psychosis. Patient on exam is very cooperative and pleasant when asked why he is here patient states "I have no idea". Patient insinuated that it is his who insisted on him to be here. Patient currently denies any fever chest pain or shortness of breath patient is up ambulating around denies any nausea vomiting. Cooperative with history taking. The patient apparently has history of CAD status post UT 3 in the past had a CABG done in 2006. He came in here a few days ago for chest pain. Ruled out for troponin negative. Had a stress test done which shows no ischemia. Ejection fraction of 28%. Clinically though patient states active denies any orthopnea denies any leg swelling. He has history of likely ischemic cardiomyopathy and status post AICD placement in January 2017. Patient states he follows up with a primary care physician named Dr. Troncoso and grievance and appeals specialist name he does not recall. He denies hearing any voices right now. Patient on record is Haney acted. Denies any suicidal ideations. Denies any suicidal ideations or any aggressive behavior. Pleasant and cooperative on exam. [facility]. He states compliance with medications and is on Coumadin 2.5 mg daily. INR was subtherapeutic on admission Review of Systems Constitutional: DENIES: Fever, Weight loss, Chills, Change in appetite Eyes: DENIES: Blurred vision, Double Vision Ears, nose, mouth, throat: DENIES: Tinnitus, Ear Pain, Epistaxis, Odynophagia Respiratory: DENIES: Cough, Hemoptysis, Sputum production, Shortness of breath Cardiovascular: DENIES: Chest pain, Palpitations, Dyspnea on Exertion, Lower Extremity Edema, Orthopnea Gastrointestinal: DENIES: Black stools, Bloody stools, Difficulty Swallowing, Anorexia Genitourinary: DENIES: Urgency, Hematuria, Penile Discharge Musculoskeletal: DENIES: Joint pain, Stiffness Integumentary: DENIES: Pruritus Hematologic/lymphatic: DENIES: Bruising Immunologic/allergic: DENIES: Urticaria Neurologic: DENIES: Headache, Speech Problems, Tremor Psychiatric: DENIES: Suicidal Ideation, Homicidal Ideation Past Family Social History Allergies: Coded Allergies: diphenhydramine (Unverified Allergy, Severe, Hives, 02/28/18) Past Medical History Hyperlipidemia, 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 fib on review of records Past Surgical History Status post CABG 2017 Right foot neuroma surgery Right total knee replacement Reported Medications See EMR Active Ordered Medications See EMR Family History Noncontributory Social History Smokes 1 pack every 2 days Denies alcohol use denies IV drug use admits to occasional marijuana use Physical Exam Vital Signs Vital Signs Date Time Temp Pulse Resp B/P (MAP) Pulse Ox O2 Delivery O2 Flow Rate FiO2 03/04/18 06:16 96.7 65 18 142/67 (92) 96 03/03/18 23:30 97.6 60 18 131/59 (83) 96 03/03/18 17:20 97.8 61 16 148/65 (92) 100 Physical Exam GENERAL: This is a well-nourished, well-developed patient, in no apparent distress. Cooperative and pleasant on exam SKIN: No rashes, ecchymoses or lesions. Cool and dry. HEAD: Atraumatic. Normocephalic. No temporal or scalp tenderness. EYES: Pupils equal round and reactive. Extraocular motions intact. No scleral icterus. No injection or drainage. ENT: Nose without bleeding, purulent drainage or septal hematoma. Throat without erythema, tonsillar hypertrophy or exudate. Uvula midline. Airway patent. NECK: Trachea midline. No JVD or lymphadenopathy. Supple, nontender, no meningeal signs. CARDIOVASCULAR: Regular rate and rhythm without murmurs, distant heart sounds, RESPIRATORY: Clear to auscultation. Breath sounds equal bilaterally. No wheezes , rales, or rhonchi. GASTROINTESTINAL: Abdomen soft, non-tender, nondistended. No hepato-splenomegaly , or palpable masses. No guarding. No scrotal swelling MUSCULOSKELETAL: Extremities without clubbing, cyanosis, or edema. No joint tenderness, effusion, or edema noted. No calf tenderness. Negative Homans sign bilaterally. NEUROLOGICAL: Awake and alert. Cranial nerves II through XII intact. Motor and sensory grossly within normal limits. Five out of 5 muscle strength in all muscle groups. Normal speech. Result Diagram: 02/28/18 1650 03/02/18 0633 Imaging Last Impressions Head CT 02/28/18 0000 Signed Impressions: Service Date/Time: February 19:23 - CONCLUSION: 1. Atrophy and chronic small vessel ischemic change. 2. No acute hemorrhage or mass effect. Adan Ward MD Assessment and Plan Assessment and Plan 72-year-old male Psychosis- managment per psychiatry History of ischemic cardiomyopathy with known ejection fraction of 28% status post AICD. Patient clinically looks good no signs of failure History of hypertension, history of paroxysmal A. fib paced rhythm On Coumadin therapy for above-with subtherapeutic INR Continue on Coreg beta-michelle,OLIVE, CCB, statins Continue coumadin INR drawn today still pending. We will dose for Coumadin and adjust Smoker patient counseled extensively. Patient states it is not likely going to happen.that he can stop Admits to marijuana use patient counseled Patient up and ambulating. medically stable - If discharge follow-up with primary care physician in [facility] and grievance and appeals specialist in [place]. Thank you for this consult will follow patient in-house with you Gabe Flores MD Mar 04, 2018 10:51
[2018-03-04] MEDS ORDERED: WARFARIN SOD 6 MG TAB PO SCH (16:00)
[2018-03-04] MEDS ORDERED: CITA20TA4 PO (16:17)
[2018-03-04] MEDS ORDERED: SERO25TA PO (16:17)
--- NOTE | 2018-03-04 16:23 | HHI.DS ---
Psychiatry Discharge Summary Inpatient Psychiatric care?: Yes Advance Directive: No Mental Health AdvanceDirective: No Health Care Proxy: No Admission Admission Date Mar 01, 2018 at 08:32 Admission Diagnosis: (1) Unspecified psychosis ICD Code: F29 - Unspecified psychosis not due to a substance or known physiological condition Brief History The patient is a 72-year-old man, domiciled with his in [place], retired, without no previous psychiatric history, no previous suicide attempts, no previous psychiatric hospitalizations, he has a medical history of hypertension, who presents to the emergency department from [facility] because he is out of their scope of practice. According to the Haney act report the patient has history of paranoia, bizarre behavior and auditory hallucinations. He has disheveled appearance, is talking to himself, and has disorganized thought patterns. EMR was reviewed. On psychiatric evaluation the patient is calm, cooperative, he seems to be quite confused, he says that he feels fine, he does not even know why he is here. He says "it is the only place available so he can go home." Patient reports that the reason he was sent here "is because my has been plotting against me, she most probably has been trying to harm me for a long time now". Patient keeps asking for police telephone number "so they can arrest my for sending me here". The patient seems to be quite focused in his behavior. He says that he feels that she is a schizophrenic and demented, she has been talking to herself, planning evil things against him. He reports that he has been very depressed due to this situation with his . He says that he is anxious at home, he cannot sleep at night, he is hypervigilant afraid that she is going to kill him. The patient is fully oriented 3, logical, coherent and relevant, but seems to be internally preoccupied and paranoid. The patient also has a significant improvement in recent recall, he was able to name 3 words, but was unable to reminded 5 minutes later. However, he has good abstraction, conserved language. He denies suicidal and homicidal ideation, he denies visual and auditory hallucinations. The patient also reports that he has been having difficulty sleeping at night, and he has been taking Soma from his best friend. He also reports using marijuana every day, denies the use of other illegal drugs alcohol //18 Above note dictated by Dr. Lu reviewed and agreed with. Dr. Lu has assigned first opinion petition supporting Haney act. Patient seen by me in the room is disorganized paranoid vigilant somewhat irritable with me. I agree with Dr. Lu patient does meet criteria for involuntary psychiatric hospitalization of the Haney act thus I will cosign second opinion petition supporting Haney act Tobacco Use In Past 30 Days: 4 or Less Cigarettes/Day Alcohol Use: 2-3 Times Per Week Hospital Course Patient's hospital course was uneventful, he showed compliance with medication from day 1. His is visited today she states that this time she feels quite safe with him coming home she acknowledges the perceptual issues with him that may be more of a dementing process than an actual psychosis. Patient is calm at this time he denies suicidality and homicidality voices or visions. He is mildly diffusely confused but he knows his is waiting from the parking lot that he wishes to go home he knows she is in [facility] that the president is strong. At this time I feel patient is recent maximum benefit of this hospitalization. He has a safe discharge. His wishes him home we have advised her of the need to show good judgment with him and to make use of support groups if necessary. If the driving issue comes up she may need to also call the police to do a wellness check otherwise follow-up with her PCP she was given Rx for psychotropic medicine for 1 month that included Seroquel and citalopram just continued his other scheduled medical medications Results Blood Pressure 142 / 67 Vital Signs Date Time Temp Pulse Resp B/P (MAP) Pulse Ox O2 Delivery O2 Flow Rate FiO2 03/04/18 06:16 96.7 65 18 142/67 (92) 96 03/01/18 05:58 Room Air Laboratory Tests Test 03/02/18 06:33 03/04/18 10:45 Chloride Level 110 MEQ/L (98-107) Estimat Glomerular Filtration Rate 72 ML/MIN (>89) Laboratory Results Test 03/02/18 06:33 Cholesterol Level 157 MG/DL (120-200) HDL Cholesterol 47.2 MG/DL (40.0-60.0) Hemoglobin A1c 5.8 % (4.3-6.0) LDL Cholesterol 84 MG/DL (0-99) Triglycerides Level 131 MG/DL (42-150) Summary of Procedures None done Imaging Last Impressions Head CT 02/28/18 0000 Signed Impressions: Service Date/Time: February 19:23 - CONCLUSION: 1. Atrophy and chronic small vessel ischemic change. 2. No acute hemorrhage or mass effect. Adan Ward MD Pending results at discharge: No Medications # of Antipsychotic meds at D/C: 1 Approp Antipsych med options 1 - Minimum of three failed multiple trials of monotherapy. 2 - Documented plan to taper to monotherapy due to previous use of multiple meds OR cross-taper in progress at D/C. 3 - Documentation of augmentation of Clozapine. 4 - Justification other than those listed in allowable values 1-3, document here : Discharge Discharge Date: Mar 04, 2018 Discharge Diagnosis: (1) BRIEF PSYCHOTIC DISORDER Diagnosis: Principal ICD Code: F23 - BRIEF PSYCHOTIC DISORDER Pt Condition on Discharge: Stable Discharge Disposition: Discharge Home Discharge Instructions Diet Instructions: As Tolerated, No Restrictions Activities you can perform: Regular-No Restrictions Scheduled Appointment: [facility] Appointment Date: Mar 07, 2018 Appointment Time: 9:30am Discharge Time > 30 minutes Mental Status Examination Appearance: Appropriate Consciousness: Alert Orientation: x4 Motor Activity: Normal gait Speech: Hesitant Language: Adequate Fund of Knowledge: Adequate Attention and Concentration: Adequate Memory: Impaired Mood: Sad Affect: Irritable Thought Process & Associations: Circumstantial, Disorganized Thought Content: Appropriate Hallucination Type: None Delusion Type: Bizarre, Paranoid Suicidal Ideation: No Suicidal Plan: No Suicidal Intention: No Homicidal Ideation: No Homicidal Plan: No Homicidal Intention: No Insight: Poor Judgment: Poor Discharge/Advance Care Plan Health Problems: (1) Unspecified psychosis Goals to promote your health * To prevent worsening of your condition and complications * To maintain your health at the optimal level Directions to meet your goals Take your medications as prescribed Follow your dietary instruction Follow activity as directed Keep your appointments as scheduled Take your immunizations and boosters as scheduled If your symptoms worsen call your PCP, if no PCP go to Urgent Care Center or Emergency Room For 11/06 questions related to your inpatient stay or results of tests pending at discharge, please contact Dr. Anthony Sneed at Smoking is Dangerous to Your Health. Avoid second hand smoking Anthony Sneed MD Mar 04, 2018 16:23
== END 2018-03-04 16:48 | disposition home or self-care (01) | DRG 885 ==
LOC: NEPD 16:04 → NEDA 03-01 08:32 → H250 03-01 09:40
PROVIDERS: ADMIT Psychiatry & Neurology Psychiatry; ATTEND Psychiatry & Neurology Psychiatry
DX: F23 Brief psychotic disorder (principal); F03.90 Unspecified dementia, unspecified severity, without behavioral disturbance, psychotic disturbance, mood disturbance, and anxiety; I48.0 Paroxysmal atrial fibrillation; J44.9 Chronic obstructive pulmonary disease, unspecified; E78.00 Pure hypercholesterolemia, unspecified; I25.10 Atherosclerotic heart disease of native coronary artery without angina pectoris; I10 Essential (primary) hypertension; I25.5 Ischemic cardiomyopathy; E78.5 Hyperlipidemia, unspecified; F17.210 Nicotine dependence, cigarettes, uncomplicated; F32.9 Major depressive disorder, single episode, unspecified; F41.9 Anxiety disorder, unspecified; G47.9 Sleep disorder, unspecified; F12.90 Cannabis use, unspecified, uncomplicated; Z96.651 Presence of right artificial knee joint; I25.2 Old myocardial infarction; Z79.01 Long term (current) use of anticoagulants; Z79.82 Long term (current) use of aspirin; Z86.73 Personal history of transient ischemic attack (TIA), and cerebral infarction without residual deficits; Z95.1 Presence of aortocoronary bypass graft; Z95.810 Presence of automatic (implantable) cardiac defibrillator
CPT/HCPCS: 70450; 80048; 80053; 80061; 80307; 81001; 83036; 85025; 85610; 90732